=== PATIENT | female | born 1940 | race Caucasian/White ===

== ENCOUNTER 2020-04-05 17:45 | Emergency (ER) | payer MEDICARE, OTHER, SELFPAY ==
[2020-04-05 17:55] VITALS: BP 165/79; PULSE 61; RESP 18; TEMP 36.5; O2SAT 94; BMI 31.8
== END 2020-04-05 21:03 | disposition left against medical advice (07) ==
PROVIDERS: Emergency Provider Family Medicine
DX: Z53.21 Procedure and treatment not carried out due to patient leaving prior to being seen by health care provider (principal)
CPT/HCPCS: 99281